=== PATIENT | female | born 1990 | race American Indian/Alaskan Native ===

== ENCOUNTER 2020-02-22 14:20 | Emergency (ER) | payer SELFPAY ==
[2020-02-22 14:27] VITALS: BP 123/77
[2020-02-22] MEDS ORDERED: ONDANSETRON 4 MG ODT TAB ONE (15:27)
[2020-02-22] MEDS ORDERED: ONDANSETRON 4 MG ODT TAB PO ONE (15:28)
--- NOTE | 2020-02-22 15:29 | Event Note ---
ED Screening Note ED Screening Note: Patient is a 29-year-old female presents emergency with points of left lower quadrant abdominal pain that began 2 days ago She has associated nausea vomiting Patient last had a bowel movement 2 days ago No dysuria She states her only medical history is a miscarriage She states that she believes she may have an allergy to baclofen Last menstrual cycle beginning of January This initial assessment/diagnostic orders/clinical plan/treatment(s) is/are subject to change based on patients health status, clinical progression and re- assessment by fellow clinical providers in the ED. Further treatment and workup at subsequent clinical providers discretion. Patient/guardian urged not to elope from the ED as their condition may be serious if not clinically assessed and managed. Initial orders include: Labs, urine, CT ODT Zofran given
[2020-02-22 16:14] LABS: Basophils % (Auto) 0.3 % (0.0-1.8); Eosinophils % (Auto) 0.1 % (0.0-4.3); Hematocrit 30.7 % (30.3-42.9); Hemoglobin 10.3 gm/dl (10.1-14.3); Lymphocytes # (Auto) 2.4 K/mm3 (1.2-5.4); Lymphocytes % (Auto) 26.8 % (13.4-35.0); Mean Corpuscular HGB Conc 34 % (30-34); Monocytes # (Auto) 0.8 K/mm3 (0.0-0.8); Monocytes % (Auto) 9.3 % (0.0-7.3); Platelet Count 323 K/mm3 (140-440); Red Blood Count 4.66 M/mm3 (3.65-5.03); Red Cell Distribution Width 17.6 % (13.2-15.2)
[2020-02-22 16:17] LABS: Mean Corpuscular Volume 66 fl (79-97)
[2020-02-22 16:51] LABS: Alanine Aminotransferase 17 units/L (7-56); Albumin 4.6 g/dL (3.9-5); BUN/Creatinine Ratio 12; Blood Urea Nitrogen 7 mg/dL (7-17); Calcium 10.2 mg/dL (8.4-10.2); Hemolysis Index 38
== END 2020-02-22 20:00 | disposition left against medical advice (07) ==
LOC: ED 14:20
DX: R10.32 Left lower quadrant pain (principal); Z53.21 Procedure and treatment not carried out due to patient leaving prior to being seen by health care provider
CPT/HCPCS: 36415; 80053; 83690; 84703; 85025; Q0162